=== PATIENT | male | born 1995 | race Hispanic/Latino ===

== ENCOUNTER 2024-10-11 15:47 | Emergency (ER) | payer BC, OTHER ==
[~2024-10-11 15:47] MED LIST: Iopamidol-370 76% 500 ML MDV (1 ML CHARGE) ONE
[2024-10-11] MEDS ORDERED: Ketorolac Tromethamine 30 MG (1 mL) VIAL ONE (17:16)
[2024-10-11 17:36] LABS: #Basophils Less than 0.03 10x3/uL (0.0-0.2); #Eosinophils Less than 0.03 10x3/uL (0.0-0.7); #Monocytes 0.67 10x3/uL (0.11-0.59); #Neutrophils 12.39 10x3/uL (1.40-6.50); %Basophils 0.1 % (0.0-1.0); %Eosinophils 0.0 % (0.0-10.0); %Lymphocytes 7.5 % (21.0-51.0); %Monocytes 4.7 % (0.0-10.0); %Neutrophils 87.3 % (42.0-75.0); Hematocrit 44.9 % (42.0-52.0); Hemoglobin 15.2 g/dL (14.0-18.0); Mean Corpuscular Hemoglobin 29.7 pg (27.0-31.0); Mean Corpuscular Volume 87.7 fL (78.0-98.0); Platelet Count 253 10x3/uL (130-400); Red Blood Cell (RBC) Count 5.12 mill/uL (4.70-6.10); White Blood Cell (WBC) Count 14.20 10x3/uL (4.8-10.8)
[2024-10-11 18:00] LABS: ALT (SGPT) 27 U/L (Less than 45); AST (SGOT) 31 U/L (11-34); Albumin 4.7 g/dL (3.1-4.5); Alkaline Phosphatase 80 U/L (40-110); Anion Gap 13 mmol/L (10-20); BUN (Urea Nitrogen) 12 mg/dL (8.9-20.6); Bilirubin, Total 0.7 mg/dL (0.3-1.2); Calc. Creatinine Clearance 0 mL/min (70-130); Calcium 10.1 mg/dL (7.8-10.44); Carbon Dioxide 26 mmol/L (22-29); Chloride 105 mmol/L (98-107); Globulin 3.2 g/dL (2.4-3.5); Glucose 105 mg/dL (70-105); Lipase 16 U/L (8-78); Potassium 4.7 mmol/L (3.5-5.1); Sodium 139 mmol/L (136-145)
[2024-10-11 18:13] LABS: Bacteria/HPF None Seen HPF (None Seen); CAUTI Indications for Culture Pelvic or flank pain; Glucose, Urine (Dipstick) Normal (Negative); Leukocyte Negative Leu/uL (Negative); Protein, Urine (Dipstick) 10 mg/dL (Neg-Trace); RBC/HPF Greater than 50 HPF (0-3); Specific Gravity, Urine 1.023 (1.002-1.036); WBC/HPF 0-3 HPF (0-3)
[2024-10-11 18:14] LABS: Urine Culture Reflex No No
[2024-10-11] MEDS ORDERED: Cephalexin 250 MG CAP ONE (18:47)
== END 2024-10-11 18:50 ==
LOC: ERS 15:47
DX: N13.2 Hydronephrosis with renal and ureteral calculous obstruction (principal)
CPT/HCPCS: 36415; 74177; 80053; 81001; 83690; 85025; 96374; J1885; Q9967